=== PATIENT | male | born 1975 | race Caucasian/White ===

== ENCOUNTER 2017-07-09 20:04 | Emergency (ER) | payer SELFPAY ==
[~2017-07-09] VITALS: Ht 182.8 cm; Wt 163.3 kg
[2017-07-09] MEDS ORDERED: CEPHALEXIN500 M1 PO (22:06)
== END 2017-07-09 22:15 | disposition home or self-care (01) ==
LOC: ED 20:04
DX: L03.115 Cellulitis of right lower limb (principal); Z29.12 Encounter for prophylactic antivenin; F17.200 Nicotine dependence, unspecified, uncomplicated